=== PATIENT | female | born 2005 | race Caucasian/White ===

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

== ENCOUNTER 2024-03-12 13:45 | Emergency (ER) | payer SELFPAY | END 2024-03-12 14:10 | disposition home or self-care (01) | LOC: VM.ED 13:45 | DX: S40.862A Insect bite (nonvenomous) of left upper arm, initial encounter (principal); Z79.899 Other long term (current) drug therapy; W57.XXXA Bitten or stung by nonvenomous insect and other nonvenomous arthropods, initial encounter | CPT/HCPCS: 99282; 99283 ==

== ENCOUNTER 2024-12-25 14:34 | Emergency (ER) | payer OTHER ==
[2024-12-25] MEDS: Take Home: Sulfamethoxazole/Trimethoprim 800-160 MG Tab, 6 Tab Pack PO ONE (14:54)
== END 2024-12-25 14:55 | disposition home or self-care (01) ==
LOC: VM.ED 14:34
DX: L03.116 Cellulitis of left lower limb (principal); Z79.899 Other long term (current) drug therapy
CPT/HCPCS: 99283; A9270-GY

== ENCOUNTER 2025-03-19 23:45 | Emergency (ER) | payer OTHER ==
[2025-03-20] MEDS: Ketorolac 30 MG/ML SDV IM ONE (00:10)
== END 2025-03-20 00:25 | disposition home or self-care (01) ==
LOC: VM.ED 23:45
DX: M54.9 Dorsalgia, unspecified (principal); M25.511 Pain in right shoulder; M25.512 Pain in left shoulder; M79.18 Myalgia, other site; Z79.899 Other long term (current) drug therapy
CPT/HCPCS: 96372; 99283; 99284; A9270-GY; J1885